=== PATIENT | female | born 1950 | race Caucasian/White ===

== ENCOUNTER 2017-04-30 11:36 | Inpatient (IN) | payer OTHER ==
[2017-04-30] MEDS ORDERED: MOTRIN TAB 600 MG PO PRN (16:07)
[2017-04-30] MEDS ORDERED: CLEOCIN VIAL 600 MG 300 MG in D5W 50 ML IV 50 ML IV SCH (16:07)
[2017-04-30 16:20] VITALS: BMI 31.6
[2017-04-30 17:32] LABS: BASOPHILS % (AUTO) 0.9 % (0.2-1.0); EOSINOPHILS # (AUTO) 0.2 x10^3/uL (0.0-0.2); EOSINOPHILS % (AUTO) 3.7 % (0.9-2.9); HEMATOCRIT 28.1 % (36.0-47.0); HEMOGLOBIN 9.1 g/dL (12.0-16.0); LYMPHOCYTES # (AUTO) 0.5 X10^3/uL (1.3-2.9); LYMPHOCYTES % (AUTO) 9.5 % (21.0-51.0); MEAN CORPUSCULAR HGB CONC 32.5 g/dL (33.0-35.0); MEAN CORPUSCULAR VOLUME 89.3 fL (80.0-100.0); MEAN PLATELET VOLUME 7.1 fL (7.4-11.0); MONOCYTES # (AUTO) 0.3 x10^3/uL (0.3-0.8); MONOCYTES % (AUTO) 5.5 % (0.0-13.0); NEUTROPHILS # (AUTO) 4.2 x10^3/uL (2.2-4.8); NEUTROPHILS % (AUTO) 80.4 % (42.0-75.0); PLATELET COUNT 154 X10^3/uL (150.0-450.0); RED BLOOD COUNT 3.15 X10^6/uL (3.5-5.4); RED CELL DISTRIBUTION WIDTH 17.4 % (11.6-16.5); WHITE BLOOD COUNT 5.2 X10^3/uL (3.6-10.0)
[2017-04-30 17:45] LABS: ALBUMIN 3.1 g/dL (3.4-5.0); CALCIUM 8.7 mg/dL (8.5-10.1); CARBON DIOXIDE 26.4 mmol/L (21-32); COR CA(FOR HYPOALB) 9.4 mg/dL (8.5-10.1); CREATININE 2.03 mg/dL (0.55-1.02); TOTAL PROTEIN 6.8 g/dL (6.4-8.2)
[2017-04-30] MEDS: NORCO 5/325 MG TAB PO PRN (22:17)
[2017-04-30] MEDS: KLONOPIN TAB 0.5 MG PO PRN (22:18)
[2017-04-30] MEDS: GENTAMICIN TOPICAL OINT TOP SCH (22:19)
[2017-04-30] MEDS: CLEOCIN 600 MG IV PREMIX 600 MG/50 ML BAG IV SCH (22:19)
[2017-04-30] MEDS: NS 500 ML IV 500 ML IV PRN (22:19)
[2017-04-30] MEDS: NYSTATIN POWDER TOP SCH (22:37)
[2017-05-01] MEDS: NORCO 5/325 MG TAB PO PRN ×3 (04:49→21:29)
[2017-05-01] MEDS: CLEOCIN 600 MG IV PREMIX 600 MG/50 ML BAG IV SCH ×3 (05:03→21:18)
[2017-05-01 06:05] LABS: ALBUMIN 2.9 g/dL (3.4-5.0); CALCIUM 8.3 mg/dL (8.5-10.1); CARBON DIOXIDE 25.5 mmol/L (21-32); COR CA(FOR HYPOALB) 9.2 mg/dL (8.5-10.1); CREATININE 1.84 mg/dL (0.55-1.02); MAGNESIUM 2.3 mg/dL (1.7-2.9); TOTAL PROTEIN 6.5 g/dL (6.4-8.2)
[2017-05-01 06:15] LABS: BASOPHILS # (AUTO) 0.1 X10^3/uL (0.0-0.1); BASOPHILS % (AUTO) 1.3 % (0.2-1.0); EOSINOPHILS # (AUTO) 0.2 x10^3/uL (0.0-0.2); EOSINOPHILS % (AUTO) 3.8 % (0.9-2.9); HEMOGLOBIN 8.8 g/dL (12.0-16.0); LYMPHOCYTES # (AUTO) 0.7 X10^3/uL (1.3-2.9); LYMPHOCYTES % (AUTO) 15.6 % (21.0-51.0); MEAN CORPUSCULAR HEMOGLOBIN 29.3 pg (27.0-34.0); MEAN CORPUSCULAR HGB CONC 32.7 g/dL (33.0-35.0); MEAN CORPUSCULAR VOLUME 89.6 fL (80.0-100.0); MEAN PLATELET VOLUME 7.4 fL (7.4-11.0); MONOCYTES # (AUTO) 0.3 x10^3/uL (0.3-0.8); MONOCYTES % (AUTO) 6.1 % (0.0-13.0); NEUTROPHILS # (AUTO) 3.3 x10^3/uL (2.2-4.8); NEUTROPHILS % (AUTO) 73.2 % (42.0-75.0); PLATELET COUNT 143 X10^3/uL (150.0-450.0); RED BLOOD COUNT 3.02 X10^6/uL (3.5-5.4); RED CELL DISTRIBUTION WIDTH 17.7 % (11.6-16.5); WHITE BLOOD COUNT 4.6 X10^3/uL (3.6-10.0)
[2017-05-01] MEDS: GENTAMICIN TOPICAL OINT TOP SCH ×2 (10:00→21:18)
[2017-05-01] MEDS: NYSTATIN POWDER TOP SCH ×2 (10:00→21:18)
[2017-05-01] MEDS ORDERED: KLONOPIN TAB 0.5 MG PO PRN (11:34)
[2017-05-01] MEDS ORDERED: ULTRAM PO PRN (11:34)
[2017-05-01] MEDS ORDERED: VISTARIL PO PRN (11:34)
[2017-05-01] MEDS ORDERED: TYLENOL 325 MG TAB PO PRN (11:34)
[2017-05-01] MEDS ORDERED: LACTULOSE PO PRN (11:34)
[2017-05-01] MEDS ORDERED: HumuLIN R SUBCUT PRN (11:39)
[2017-05-01] MEDS ORDERED: PATIENT'S HOME MEDICATION (Ferrous Sulfate [Ferrous Sulfate] 325 MG) PO SCH (11:45)
[2017-05-01] MEDS ORDERED: CITALOPRAM HYDROBROMIDE 10 MG PO SCH (11:45)
[2017-05-01] MEDS ORDERED: LACTOBACILLUS ACIDOPHILUS PO SCH (11:45)
[2017-05-01] MEDS ORDERED: NYSTATIN POWDER TOP SCH (12:00)
--- NOTE | 2017-05-01 12:54 | DR.H&P ---
H&P - History & Physical for Day of: H&P Date: 04/30/17 - Chief Complaint Chief Complaint: right breast pain, right breast rash - Allergies Allergies/Adverse Reactions: Allergies Allergy/AdvReac Type Severity Reaction Status Date / Time Sulfa (Sulfonamide Allergy Verified 04/30/17 16:07 Antibiotics) [SULFA] sulfamethoxazole Allergy Verified 04/30/17 16:07 [From Bactrim] trimethoprim [From Bactrim] Allergy Verified 04/30/17 16:07 - History of Present Illness History of Present Illness: patient is a 66-year-old white female who was a direct admit for treatment of a right breast cellulitis/abscess and right upper abdominal cellulitis. Patient had been treated with by mouth antibiotics prior to admission. Patient does have a past medical history of diabetes hypertension and arthritis and breast cancer. Plan to obtain blood cultures and wound culture, administer IV antibiotics and pain control and resume home medications. - Past Medical History Past Medical History: Arthritis, Diabetes, GERD, Hypertension Additional Medical History: breast cancer - Past Surgical History Surgical History: Cholecystectomy - Social History Does patient currently use any type of tobacco product: No Have you used tobacco products in the last 12 months: No Type of Tobacco Use: None Does any household member use tobacco: No Alcohol Use: None Drug Use: None - Medications Home Medications: Acetaminophen [Tylenol 325 mg Tab] 650 mg PO Q6H PRN 04/30/17 [History Confirmed 04/30/17] Amiodarone HCl [CORDARONE tab 200 mg *] 1 tab PO DAILY 04/30/17 [History Confirmed 04/30/17] Amlodipine Besylate [NORVASC 10 MG *] 10 mg PO DAILY 04/30/17 [History Confirmed 04/30/17] Aspirin [Adult Low Dose Aspirin EC] 81 mg PO DAILY 04/30/17 [History Confirmed 04/30/17] Cephalexin [KEFLEX CAP 500 MG *] 500 mg PO BID 04/30/17 [History Confirmed 04/30] Citalopram Hydrobromide [Celexa] 10 mg PO DAILY 04/30/17 [History Confirmed ] Clonazepam [Klonopin Tab 0.5 mg] 0.5 mg PO Q12H PRN 04/30/17 [History Confirmed 04/30/17] Docusate Sodium [Colace] 100 mg PO BID 10/24/17 [History Confirmed 04/30/17] Doxycycline Monohydrate [Mondoxyne Nl] 100 mg PO BID 04/30/17 [History Confirmed 04/30/17] Ferrous Sulfate 325 mg PO BID 04/30/17 [History Confirmed 04/30/17] Gabapentin [Neurontin Cap 100 mg] 200 mg PO BID 04/30/17 [History Confirmed ] Hydroxyzine Pamoate 25 mg PO Q6H PRN 04/30/17 [History Confirmed 04/30/17] Insulin Glargine (Lantus) [LANTUS INSULIN 10 ML VIAL *] 10 units SC HS 04/30/17 [History Confirmed 04/30/17] Lactobacillus Acidophilus [Probiotic Acidophilus] 2 each PO BID 04/30/17 [ History Confirmed 04/30/17] Lactulose 30 ml PO Q4H PRN 04/30/17 [History Confirmed 04/30/17] Levothyroxine Sodium [SYNTHROID 75 mcg *] 1 tab PO QAM 04/30/17 [History Confirmed 04/30/17] Losartan Potassium [LOSARTAN POTASSIUM 50 MG *] 50 mg PO DAILY 04/30/17 [ History Confirmed 04/30/17] Nystatin (Topical) [NYSTATIN POWDER *] 1 applic TOP BID 04/30/17 [History Confirmed 04/30/17] Ropinirole HCl [REQUIP 1 MG *] 1 mg PO HS 04/30/17 [History Confirmed 04/30/17] Tramadol HCl [ULTRAM 50 MG *] 50 mg PO Q8H PRN 04/30/17 [History Confirmed 04/30] - Review of Systems Constitutional: No Symptoms Reported Eyes: No Symptoms Reported ENT: No Symptoms Reported Respiratory: No Symptoms Reported Cardiovascular: No Symptoms Reported Gastrointestinal: No Symptoms Reported Genitourinary: No Symptoms Reported Musculoskeletal: Back Pain, Leg Pain Skin: Rash Neurological: No Symptoms Reported - Physical Exam Vital Signs: Temperature 97.8 F Pulse Rate [Left Brachial] 83 Respiratory Rate 18 Blood Pressure [Left Arm] 162/77 Blood Pressure 175/83 O2 Sat by Pulse Oximetry 97 Oriented: Normal Eyes: Normal Ear: Normal Nose: Normal Throat: Normal Respiratory: RLL Diminished, LLL Diminished Cardiovascular: Normal : Normal Auscultation: Bowel Sounds: Normal Palpation: Normal Tenderness: Normal Skin: Decreased Turgur, Rash, Other (right breast enlarged with palpable mass under nipple, approx 5cm width, tender, pitted skin to tissue surround nipple, mild nipple retraction, severe redness and excoriation under right breast, skin folds) Musculoskeletal: Back:Thoracic, Back:Lumbar Psychiatric: Anxiety Affect: Anxious Speech Pattern: Clear, Appropriate - Assessment/Plan (1) Cellulitis of right breast Status: Acute Plan: admit, blood and wound cultures, treatment of topical erythema with nystatin powder, IV antibiotic therapy, admission labs, resume home medications (2) Mass of breast, right Status: Acute (3) Cellulitis, abdominal wall Status: Acute (4) Keila infection Status: Acute (5) Diabetes Status: Acute (6) Hypertension Status: Acute
[2017-05-01] MEDS ORDERED: CHRONULAC PO PRN (13:01)
[2017-05-01] MEDS: NORVASC TAB 10 MG PO SCH (14:13)
[2017-05-01] MEDS: ASPIRIN EC 81 MG PO SCH (14:13)
[2017-05-01] MEDS: COZAAR PO SCH (14:14)
[2017-05-01] MEDS: NEURONTIN CAP 100 MG PO SCH ×2 (14:14→21:18)
[2017-05-01] MEDS: CORDARONE TAB 200 MG PO SCH (14:14)
[2017-05-01] MEDS: ZOFRAN INJ 4 MG VIAL IVP PRN (16:39)
--- NOTE | 2017-05-01 16:58 | US ---
HISTORY: Right breast pain with cellulitis and possible abscess; prior history of breast carcinoma Study: Right breast ultrasound Comparison: None Technique: Multiple grayscale and color Doppler images of the right breast were obtained. Findings: Targeted sonographic evaluation of the region of interest along the lower outer quadrant right breast demonstrates diffuse edema which could be secondary to cellulitis without a focal discrete fluid col lection to suggest abscess. Findings could also be seen in the setting of asymmetric venous or lympha tic obstruction as well as in the setting of an overall volume overload status. Clinical correlation and follow-up is recommended. Correlation with bilateral mammography is recommended on a routine outp atient nonemergent basis. IMPRESSION: Diffuse right breast edema as above. Reported By:
[2017-05-01] MEDS ORDERED: LANTUS SC SCH (21:00)
[2017-05-01] MEDS: HEMOCYTE-PLUS PO SCH (21:17)
[2017-05-01] MEDS: COLACE CAP 100 MG PO SCH (21:17)
[2017-05-01] MEDS: REQUIP PO SCH (21:17)
[2017-05-01] MEDS: KLONOPIN TAB 0.5 MG PO PRN (21:30)
[2017-05-01] MEDS: SNACK - Diabetic Appropriate PO SCH (21:39)
[2017-05-01] MEDS: PHENERGAN TAB 25 MG PO PRN (22:08)
[2017-05-02] MEDS: CLEOCIN 600 MG IV PREMIX 600 MG/50 ML BAG IV SCH ×3 (06:12→21:01)
[2017-05-02 06:45] LABS: BASOPHILS # (AUTO) 0.1 X10^3/uL (0.0-0.1); BASOPHILS % (AUTO) 0.5 % (0.2-1.0); EOSINOPHILS % (AUTO) 0.2 % (0.9-2.9); HEMATOCRIT 27.6 % (36.0-47.0); HEMOGLOBIN 8.9 g/dL (12.0-16.0); LYMPHOCYTES # (AUTO) 0.4 X10^3/uL (1.3-2.9); LYMPHOCYTES % (AUTO) 4.3 % (21.0-51.0); MEAN CORPUSCULAR HEMOGLOBIN 29.1 pg (27.0-34.0); MEAN CORPUSCULAR HGB CONC 32.2 g/dL (33.0-35.0); MEAN CORPUSCULAR VOLUME 90.3 fL (80.0-100.0); MEAN PLATELET VOLUME 7.7 fL (7.4-11.0); MONOCYTES # (AUTO) 0.6 x10^3/uL (0.3-0.8); MONOCYTES % (AUTO) 6.2 % (0.0-13.0); NEUTROPHILS # (AUTO) 8.6 x10^3/uL (2.2-4.8); NEUTROPHILS % (AUTO) 88.8 % (42.0-75.0); PLATELET COUNT 134 X10^3/uL (150.0-450.0); RED BLOOD COUNT 3.06 X10^6/uL (3.5-5.4); RED CELL DISTRIBUTION WIDTH 17.4 % (11.6-16.5); WHITE BLOOD COUNT 9.7 X10^3/uL (3.6-10.0)
[2017-05-02 06:58] LABS: ALBUMIN 3.1 g/dL (3.4-5.0); CALCIUM 8.4 mg/dL (8.5-10.1); CARBON DIOXIDE 26.8 mmol/L (21-32); COR CA(FOR HYPOALB) 9.1 mg/dL (8.5-10.1); CREATININE 1.96 mg/dL (0.55-1.02); TOTAL PROTEIN 6.8 g/dL (6.4-8.2)
[2017-05-02] MEDS ORDERED: KAYEXALATE PO ONE (08:32)
[2017-05-02] MEDS: CORDARONE TAB 200 MG PO SCH ×2 (09:44→11:47)
[2017-05-02] MEDS: NORVASC TAB 10 MG PO SCH ×2 (09:44→11:48)
[2017-05-02] MEDS: CELEXA PO SCH ×2 (09:45→11:46)
[2017-05-02] MEDS: NEURONTIN CAP 100 MG PO SCH ×3 (09:46→21:06)
[2017-05-02] MEDS: SYNTHROID 75 mcg TAB PO SCH ×2 (09:46→11:46)
[2017-05-02] MEDS: COZAAR PO SCH ×2 (09:47→11:47)
[2017-05-02] MEDS: ASPIRIN EC 81 MG PO SCH ×2 (09:47→11:45)
[2017-05-02] MEDS: HEMOCYTE-PLUS PO SCH ×3 (09:47→21:06)
[2017-05-02] MEDS: COLACE CAP 100 MG PO SCH ×3 (09:47→21:05)
[2017-05-02] MEDS: VSL#3 PO SCH ×2 (09:47→11:45)
[2017-05-02] MEDS ORDERED: LASIX IVP ONE ×2 (10:00→11:38)
--- NOTE | 2017-05-02 10:33 | RAD ---
HISTORY: Aspiration. Prior history of hypertension and atrial fibrillation. Study: Single-view chest, done portably. Comparison: No priors Findings: Left-sided subclavian line is present with the tip in the upper SVC. The trachea is midline. There is cardiomegaly with aortic uncoiling and pulmonary vascular congestion bilaterally. Foci of edema, inf iltrate or aspiration are present bilaterally. There are bilateral pleural effusions, larger on the r ight side. 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 No acute osseou s changes seen. IMPRESSION: Cardiomegaly with pulmonary vascular congestion and bilateral foci of edema, infiltrate or aspiration . Bilateral pleural effusions are present, larger on the right side. Reported By:
[2017-05-02 10:42] LABS: BILIRUBIN,URINE NEGATIVE (NEGATIVE); BLOOD/HEMOGLOBIN,URINE 2+ (NEGATIVE); GLUCOSE, URINE NEGATIVE (NEGATIVE); KETONES,URINE NEGATIVE (NEGATIVE); LEUKOCYTE ESTERASE ,URINE 1+ (NEGATIVE); NITRITES,URINE POSITIVE (NEGATIVE); PROTEIN,URINE 3+ (NEGATIVE); UROBILINOGEN,URINE NORMAL (NORMAL)
[2017-05-02 10:52] LABS: AMORPHOUS SEDIMENT,UR 1+ /HPF (NEGATIVE); APPEARANCE,URINE SLIGHTLY HAZY (CLEAR); BACTERIA,URINE TRACE /HPF (NEGATIVE); COLOR,URINE YELLOW (YELLOW); SQUAMOUS EPITHELIAL CELL,UR RARE /HPF (NEGATIVE)
[2017-05-02] MEDS: PEPCID 20 MG IV PREMIX* 20 MG/50 ML BAG IV SCH (11:10)
[2017-05-02] MEDS: NYSTATIN POWDER TOP SCH ×2 (11:48→21:06)
[2017-05-02] MEDS: GENTAMICIN TOPICAL OINT TOP SCH ×2 (11:48→21:05)
[2017-05-02] MEDS: DUONEB 0.5 MG/3 MG NEB PRN ×2 (12:05→16:37)
[2017-05-02] MEDS: LASIX IVP SCH (21:01)
[2017-05-02] MEDS: SNACK - Diabetic Appropriate PO SCH (21:05)
[2017-05-02] MEDS: REQUIP PO SCH (21:07)
[2017-05-03] MEDS: DUONEB 0.5 MG/3 MG NEB PRN ×2 (00:45→16:12)
[2017-05-03] MEDS: ZOFRAN INJ 4 MG VIAL IVP PRN (04:26)
[2017-05-03] MEDS: CLEOCIN 600 MG IV PREMIX 600 MG/50 ML BAG IV SCH (05:26)
[2017-05-03 07:19] LABS: BASOPHILS % (AUTO) 0.4 % (0.2-1.0); EOSINOPHILS % (AUTO) 0.3 % (0.9-2.9); HEMATOCRIT 26.3 % (36.0-47.0); HEMOGLOBIN 8.6 g/dL (12.0-16.0); LYMPHOCYTES # (AUTO) 0.4 X10^3/uL (1.3-2.9); LYMPHOCYTES % (AUTO) 5.7 % (21.0-51.0); MEAN CORPUSCULAR HEMOGLOBIN 29.5 pg (27.0-34.0); MEAN CORPUSCULAR HGB CONC 32.6 g/dL (33.0-35.0); MEAN CORPUSCULAR VOLUME 90.5 fL (80.0-100.0); MONOCYTES # (AUTO) 0.4 x10^3/uL (0.3-0.8); NEUTROPHILS # (AUTO) 6.2 x10^3/uL (2.2-4.8); NEUTROPHILS % (AUTO) 88.6 % (42.0-75.0); PLATELET COUNT 132 X10^3/uL (150.0-450.0); RED BLOOD COUNT 2.91 X10^6/uL (3.5-5.4); RED CELL DISTRIBUTION WIDTH 17.1 % (11.6-16.5)
[2017-05-03 07:33] LABS: ALBUMIN 2.9 g/dL (3.4-5.0); CALCIUM 8.7 mg/dL (8.5-10.1); CARBON DIOXIDE 24.5 mmol/L (21-32); COR CA(FOR HYPOALB) 9.6 mg/dL (8.5-10.1); CREATININE 1.88 mg/dL (0.55-1.02); TOTAL PROTEIN 6.7 g/dL (6.4-8.2)
[2017-05-03] MEDS: CELEXA PO SCH (08:11)
[2017-05-03] MEDS: ASPIRIN EC 81 MG PO SCH (08:11)
[2017-05-03] MEDS: COZAAR PO SCH (08:12)
[2017-05-03] MEDS: COLACE CAP 100 MG PO SCH ×2 (08:12→21:27)
[2017-05-03] MEDS: HEMOCYTE-PLUS PO SCH ×2 (08:12→21:27)
[2017-05-03] MEDS: NEURONTIN CAP 100 MG PO SCH ×2 (08:12→21:27)
[2017-05-03] MEDS: CORDARONE TAB 200 MG PO SCH (08:12)
[2017-05-03] MEDS: NORVASC TAB 10 MG PO SCH (08:13)
[2017-05-03] MEDS: SYNTHROID 75 mcg TAB PO SCH (08:13)
[2017-05-03] MEDS: VSL#3 PO SCH (08:14)
[2017-05-03] MEDS: MORPHINE SULFATE INJ 2 MG INJ IVP PRN ×2 (08:33→15:27)
[2017-05-03] MEDS: LASIX IVP SCH ×2 (08:33→21:25)
[2017-05-03] MEDS: PEPCID 20 MG IV PREMIX* 20 MG/50 ML BAG IV SCH (08:33)
[2017-05-03] MEDS ORDERED: CONSULT PHARMACY - ANTIBIOTIC XX SCH (09:00)
[2017-05-03] MEDS: GENTAMICIN TOPICAL OINT TOP SCH ×2 (09:57→21:27)
[2017-05-03] MEDS: NYSTATIN POWDER TOP SCH ×2 (09:57→21:27)
[2017-05-03] MEDS: ROCEPHIN 1 GM IV PREMIX 1 GM/50 ML IV.SOLN. IV SCH (13:22)
[2017-05-03] MEDS: SNACK - Diabetic Appropriate PO SCH (21:27)
[2017-05-03] MEDS: REQUIP PO SCH (21:28)
--- NOTE | 2017-05-04 08:34 | RAD ---
HISTORY: CHF, possible aspiration. Study: Single-view chest, done portably Comparison: 05/02/2017. Findings: Left-sided subclavian line is seen with the tip in the upper SVC. The trachea is midline. There is gl obular cardiomegaly with aortic uncoiling and pulmonary vascular congestion. There are again bilatera l foci of edema, infiltrate or aspiration. Bibasilar densities appear to be increasing compared to pr ior studies. There are bilateral pleural effusions. Osteonecrosis is again seen involving the right h umeral head with chronic dislocation. No acute osseous changes are appreciated. IMPRESSION: Further increase in bilateral lung densities representing either edema, infiltrate or aspiration. Leo ateral pleural effusions are again noted. Reported By:
[2017-05-04] MEDS: CORDARONE TAB 200 MG PO SCH (09:24)
[2017-05-04] MEDS: VSL#3 PO SCH (09:24)
[2017-05-04] MEDS: NEURONTIN CAP 100 MG PO SCH ×2 (09:24→21:45)
[2017-05-04] MEDS: NORVASC TAB 10 MG PO SCH (09:24)
[2017-05-04] MEDS: COLACE CAP 100 MG PO SCH ×2 (09:24→21:44)
[2017-05-04] MEDS: ASPIRIN EC 81 MG PO SCH (09:24)
[2017-05-04] MEDS: CELEXA PO SCH (09:24)
[2017-05-04] MEDS: HEMOCYTE-PLUS PO SCH ×2 (09:25→21:44)
[2017-05-04] MEDS: COZAAR PO SCH (09:25)
[2017-05-04] MEDS: PEPCID 20 MG IV PREMIX* 20 MG/50 ML BAG IV SCH (09:45)
[2017-05-04] MEDS: SYNTHROID 75 mcg TAB PO SCH (09:48)
[2017-05-04] MEDS: LASIX IVP SCH ×2 (09:48→21:44)
[2017-05-04] MEDS: NYSTATIN POWDER TOP SCH ×2 (09:49→22:46)
[2017-05-04] MEDS: GENTAMICIN TOPICAL OINT TOP SCH ×2 (09:49→22:46)
[2017-05-04] MEDS: ROCEPHIN 1 GM IV PREMIX 1 GM/50 ML IV.SOLN. IV SCH (10:22)
[2017-05-04] MEDS: NS 500 ML IV 500 ML IV PRN (18:15)
[2017-05-04] MEDS ORDERED: NS 50 ML IV 50 ML IV ONE (20:52)
[2017-05-04] MEDS ORDERED: TEFLARO IV ONE (20:53)
[2017-05-04] MEDS: NORCO 5/325 MG TAB PO PRN (21:44)
[2017-05-04] MEDS: REQUIP PO SCH (21:44)
[2017-05-04] MEDS: SNACK - Diabetic Appropriate PO SCH (21:46)
[2017-05-04] MEDS: KLONOPIN TAB 0.5 MG PO PRN (21:46)
[2017-05-04] MEDS: TEFLARO 600 MG in NS 50 ML IV + SPIKE MINIBAG* 50 ML IV SCH (21:46)
[2017-05-05] MEDS: MORPHINE SULFATE INJ 2 MG INJ IVP PRN (00:27)
[2017-05-05] MEDS: PHENERGAN TAB 25 MG PO PRN (00:28)
[2017-05-05 05:22] LABS: ALANINE AMINOTRANSFERASE 13 Units/L (12-78); ALBUMIN 2.9 g/dL (3.4-5.0); ALKALINE PHOSPHATASE 96 Units/L (46-116); ASPARTATE AMINO TRANSFERASE 16 Units/L (15-37); BLOOD UREA NITROGEN 46 mg/dL (7-18); CALCIUM 8.9 mg/dL (8.5-10.1); CARBON DIOXIDE 25.6 mmol/L (21-32); CHLORIDE 112 mmol/L (98-107); COR CA(FOR HYPOALB) 9.8 mg/dL (8.5-10.1); CREATININE 1.86 mg/dL (0.55-1.02); SODIUM 148 mmol/L (136-145); TOTAL PROTEIN 6.7 g/dL (6.4-8.2); eGFR BLACK RACES 35 (>60); eGFR NON BLACK RACES 29 (>60)
[2017-05-05 05:27] LABS: BASOPHILS % (AUTO) 0.7 % (0.2-1.0); EOSINOPHILS % (AUTO) 0.8 % (0.9-2.9); HEMATOCRIT 30.2 % (36.0-47.0); HEMOGLOBIN 9.7 g/dL (12.0-16.0); LYMPHOCYTES # (AUTO) 0.4 X10^3/uL (1.3-2.9); MEAN CORPUSCULAR HGB CONC 32.3 g/dL (33.0-35.0); MEAN CORPUSCULAR VOLUME 89.9 fL (80.0-100.0); MEAN PLATELET VOLUME 7.7 fL (7.4-11.0); MONOCYTES # (AUTO) 0.2 x10^3/uL (0.3-0.8); MONOCYTES % (AUTO) 3.6 % (0.0-13.0); NEUTROPHILS # (AUTO) 5.4 x10^3/uL (2.2-4.8); NEUTROPHILS % (AUTO) 88.9 % (42.0-75.0); PLATELET COUNT 175 X10^3/uL (150.0-450.0); RED BLOOD COUNT 3.36 X10^6/uL (3.5-5.4); RED CELL DISTRIBUTION WIDTH 16.4 % (11.6-16.5)
[2017-05-05] MEDS ORDERED: TEFLARO IV ONE (09:22)
[2017-05-05] MEDS ORDERED: NS 50 ML IV 50 ML IV ONE (09:23)
[2017-05-05] MEDS: TEFLARO 600 MG in NS 50 ML IV 50 ML IV SCH (09:37)
[2017-05-05] MEDS: VSL#3 PO SCH (09:38)
[2017-05-05] MEDS: CELEXA PO SCH (09:38)
[2017-05-05] MEDS: HEMOCYTE-PLUS PO SCH (09:39)
[2017-05-05] MEDS: SYNTHROID 75 mcg TAB PO SCH (09:40)
[2017-05-05] MEDS: NEURONTIN CAP 100 MG PO SCH (09:40)
[2017-05-05] MEDS: COLACE CAP 100 MG PO SCH (09:40)
[2017-05-05] MEDS: CORDARONE TAB 200 MG PO SCH (09:40)
[2017-05-05] MEDS: NORVASC TAB 10 MG PO SCH (09:40)
[2017-05-05] MEDS: COZAAR PO SCH (09:40)
[2017-05-05] MEDS: ASPIRIN EC 81 MG PO SCH (09:40)
[2017-05-05] MEDS: GENTAMICIN TOPICAL OINT TOP SCH (09:47)
[2017-05-05] MEDS: NYSTATIN POWDER TOP SCH (09:47)
[2017-05-05] MEDS: LASIX IVP SCH (09:50)
[2017-05-05] MEDS: ROCEPHIN 1 GM IV PREMIX 1 GM/50 ML IV.SOLN. IV SCH (10:27)
[2017-05-05] MEDS: PEPCID 20 MG IV PREMIX* 20 MG/50 ML BAG IV SCH (11:00)
[2017-05-06] MEDS: NS 500 ML IV 500 ML IV PRN ×3 (00:47→23:16)
[2017-05-06] MEDS: TEFLARO 600 MG in NS 50 ML IV 50 ML IV SCH ×3 (01:00→21:52)
[2017-05-06] MEDS: LASIX IVP SCH ×3 (01:01→21:49)
[2017-05-06] MEDS: COLACE CAP 100 MG PO SCH ×4 (01:02→21:54)
[2017-05-06] MEDS: SNACK - Diabetic Appropriate PO SCH ×2 (01:02→21:48)
[2017-05-06] MEDS: NEURONTIN CAP 100 MG PO SCH ×3 (01:03→21:51)
[2017-05-06] MEDS: HEMOCYTE-PLUS PO SCH ×3 (01:03→21:50)
[2017-05-06] MEDS: REQUIP PO SCH ×2 (01:04→21:51)
[2017-05-06] MEDS: NYSTATIN POWDER TOP SCH ×3 (01:06→21:30)
[2017-05-06] MEDS: GENTAMICIN TOPICAL OINT TOP SCH ×3 (01:13→21:50)
--- NOTE | 2017-05-06 06:50 | RAD ---
HISTORY: Follow-up congestive heart failure Study: Chest AP portable Comparison: 05/04/2017 Findings: There is a left-sided central line with its tip in the superior vena cava. The heart is enlarged. Mil d pulmonary venous congestion is present. Increased density is present in both lower lobes consisten t with developing atelectasis or infiltrate. The appearance is unchanged from the prior examination. Bilateral pleural effusions are again identified. The bony thorax is unremarkable with the exception of deformity of the right humeral head likely due to osteonecrosis and chronic right glenohumeral dis location. IMPRESSION: No significant change from the prior examination Reported By:
[2017-05-06 07:37] LABS: BASOPHILS # (AUTO) 0.1 X10^3/uL (0.0-0.1); EOSINOPHILS # (AUTO) 0.2 x10^3/uL (0.0-0.2); HEMATOCRIT 27.2 % (36.0-47.0); HEMOGLOBIN 8.9 g/dL (12.0-16.0); LYMPHOCYTES # (AUTO) 0.5 X10^3/uL (1.3-2.9); LYMPHOCYTES % (AUTO) 8.7 % (21.0-51.0); MEAN CORPUSCULAR HEMOGLOBIN 29.1 pg (27.0-34.0); MEAN CORPUSCULAR HGB CONC 32.9 g/dL (33.0-35.0); MEAN CORPUSCULAR VOLUME 88.4 fL (80.0-100.0); MEAN PLATELET VOLUME 7.1 fL (7.4-11.0); MONOCYTES # (AUTO) 0.2 x10^3/uL (0.3-0.8); NEUTROPHILS # (AUTO) 5.1 x10^3/uL (2.2-4.8); NEUTROPHILS % (AUTO) 83.3 % (42.0-75.0); PLATELET COUNT 162 X10^3/uL (150.0-450.0); RED BLOOD COUNT 3.08 X10^6/uL (3.5-5.4); WHITE BLOOD COUNT 6.1 X10^3/uL (3.6-10.0)
[2017-05-06 07:47] LABS: ALANINE AMINOTRANSFERASE 12 Units/L (12-78); ALBUMIN 2.6 g/dL (3.4-5.0); ALKALINE PHOSPHATASE 84 Units/L (46-116); ASPARTATE AMINO TRANSFERASE 12 Units/L (15-37); BLOOD UREA NITROGEN 39 mg/dL (7-18); CALCIUM 8.4 mg/dL (8.5-10.1); CARBON DIOXIDE 28.3 mmol/L (21-32); CHLORIDE 111 mmol/L (98-107); COR CA(FOR HYPOALB) 9.5 mg/dL (8.5-10.1); CREATININE 1.64 mg/dL (0.55-1.02); SODIUM 149 mmol/L (136-145); TOTAL PROTEIN 5.9 g/dL (6.4-8.2); eGFR BLACK RACES 40 (>60); eGFR NON BLACK RACES 33 (>60)
[2017-05-06] MEDS: CORDARONE TAB 200 MG PO SCH (08:43)
[2017-05-06] MEDS: COZAAR PO SCH (08:43)
[2017-05-06] MEDS: ASPIRIN EC 81 MG PO SCH (08:43)
[2017-05-06] MEDS: NORVASC TAB 10 MG PO SCH (08:43)
[2017-05-06] MEDS: CELEXA PO SCH (08:43)
[2017-05-06] MEDS: SYNTHROID 75 mcg TAB PO SCH (08:44)
[2017-05-06] MEDS: VSL#3 PO SCH (08:44)
[2017-05-06] MEDS: PEPCID 20 MG IV PREMIX* 20 MG/50 ML BAG IV SCH (09:09)
[2017-05-06] MEDS: ROCEPHIN 1 GM IV PREMIX 1 GM/50 ML IV.SOLN. IV SCH (09:10)
[2017-05-06] MEDS ORDERED: LR 1000 ML IV 1,000 ML IV ONE (10:15)
[2017-05-06] MEDS: TEFLARO 600 MG in NS 50 ML IV + SPIKE MINIBAG* 50 ML IV SCH (10:16)
--- NOTE | 2017-05-06 10:41 | DR.CONSULT ---
Consult - Consultation for Day of: Date: 05/06/17 - Chief Complaint Chief Complaint: Right breast edema. - Allergies Allergies/Adverse Reactions: Allergies Allergy/AdvReac Type Severity Reaction Status Date / Time Sulfa (Sulfonamide Allergy Verified 04/30/17 16:07 Antibiotics) [SULFA] sulfamethoxazole Allergy Verified 04/30/17 16:07 [From Bactrim] trimethoprim [From Bactrim] Allergy Verified 04/30/17 16:07 - History of Present Illness History of Present Illness: The patient is a 66 yo female with multiple medical problems that presents with right breast rash and edema. The patient was treated as an outpatient with antibiotics without improvement. She was admitted to the hospital and placed in IV antibiotics. An ultrasound was performed that demonstrated edema without a drainable fluid collection. On further exam, the patient also has an infected sebaceous cyst on the lateral aspect of the right posterior thorax. The nurses report green purulent drainage. Surgery was consulted for incision and drainage. - Past Medical History Past Medical History: Arthritis, Diabetes, GERD, Hypertension Additional Medical History: breast cancer - Past Surgical History Surgical History: Cholecystectomy, Mastectomy (Left) - Social History Does patient currently use any type of tobacco product: No Have you used tobacco products in the last 12 months: No Type of Tobacco Use: None Does any household member use tobacco: No Alcohol Use: None Drug Use: None - Medications Home Medications: Acetaminophen [Tylenol 325 mg Tab] 650 mg PO Q6H PRN 04/30/17 [History Confirmed 04/30/17] Amiodarone HCl [CORDARONE tab 200 mg *] 1 tab PO DAILY 04/30/17 [History Confirmed 04/30/17] Amlodipine Besylate [NORVASC 10 MG *] 10 mg PO DAILY 04/30/17 [History Confirmed 04/30/17] Aspirin [Adult Low Dose Aspirin EC] 81 mg PO DAILY 04/30/17 [History Confirmed 04/30/17] Cephalexin [KEFLEX CAP 500 MG *] 500 mg PO BID 04/30/17 [History Confirmed 04/30] Citalopram Hydrobromide [Celexa] 10 mg PO DAILY 04/30/17 [History Confirmed ] Clonazepam [Klonopin Tab 0.5 mg] 0.5 mg PO Q12H PRN 04/30/17 [History Confirmed 04/30/17] Docusate Sodium [Colace] 100 mg PO BID 04/30/17 [History Confirmed 04/30/17] Doxycycline Monohydrate [Mondoxyne Nl] 100 mg PO BID 04/30/17 [History Confirmed 04/30/17] Ferrous Sulfate 325 mg PO BID 04/30/17 [History Confirmed 04/30/17] Gabapentin [Neurontin Cap 100 mg] 200 mg PO BID 04/30/17 [History Confirmed ] Hydroxyzine Pamoate 25 mg PO Q6H PRN 04/30/17 [History Confirmed 04/30/17] Insulin Glargine (Lantus) [LANTUS INSULIN 10 ML VIAL *] 10 units SC HS 04/30/17 [History Confirmed 04/30/17] Lactobacillus Acidophilus [Probiotic Acidophilus] 2 each PO BID 04/30/17 [ History Confirmed 04/30/17] Lactulose 30 ml PO Q4H PRN 04/30/17 [History Confirmed 04/30/17] Levothyroxine Sodium [SYNTHROID 75 mcg *] 1 tab PO QAM 04/30/17 [History Confirmed 04/30/17] Losartan Potassium [LOSARTAN POTASSIUM 50 MG *] 50 mg PO DAILY 04/30/17 [ History Confirmed 04/30/17] Nystatin (Topical) [NYSTATIN POWDER *] 1 applic TOP BID 04/30/17 [History Confirmed 04/30/17] Ropinirole HCl [REQUIP 1 MG *] 1 mg PO HS 04/30/17 [History Confirmed 04/30/17] Tramadol HCl [ULTRAM 50 MG *] 50 mg PO Q8H PRN 04/30/17 [History Confirmed 04/30] - Review of Systems Constitutional: No Symptoms Reported Eyes: No Symptoms Reported ENT: No Symptoms Reported Respiratory: No Symptoms Reported Cardiovascular: No Symptoms Reported Gastrointestinal: No Symptoms Reported Genitourinary: No Symptoms Reported Musculoskeletal: Back Pain, Leg Pain Skin: Rash, Wound (Right posterior thorax) Neurological: No Symptoms Reported - Physical Exam Vital Signs: Temperature 97.8 F Pulse Rate [Left Brachial] 109 Pulse Rate 113 Respiratory Rate 22 Blood Pressure [Left Arm] 135/76 Blood Pressure 132/74 O2 Sat by Pulse Oximetry 99 Oriented: Normal Eyes: Normal Ear: Normal Nose: Normal Respiratory: Clear Throughout Cardiovascular: Normal Auscultation: Bowel Sounds: Normal Palpation: Normal Tenderness: Normal Skin: Wound (Right lateral posterior thorax. Induration 3.5 cm. Mild drainage. Mildy TTP.), Other (Right breast with edema along right aspect of breast. No erythema. NTTP. No induration. No palpable mass.) Musculoskeletal: Swelling (LE with edema and dicoloration c/w venous stasis disease.) Psychiatric: Depression, Agitation Mood Description: Anxious Affect: Depressed Speech Pattern: Clear - Plan Plan: 66 year old female with right posterior thorax infected sebaceous cyst. Will proceed with incision and drainage. Continue IV abx. Will need outpatient wound care.
[2017-05-06] MEDS ORDERED: XYLOCAINE 2% and EPINEPHRINE 1:100,000 ONE (11:01)
[2017-05-06] MEDS ORDERED: MARCAINE 0.25% INJ ONE (11:02)
[2017-05-06] MEDS ORDERED: NS IRRIGATION 1000 ML 500 ML IR ONE (11:35)
--- NOTE | 2017-05-06 12:47 | OR.GENERIC ---
Post-Op Note Generic - Post-Op Note Operative Report: Operative Report Date of Operation: May 06, 2017 Pre-Operative Diagnosis: Right lateral posterior thorax infected sebaceous cyst. Post-Operative Diagnosis: Right lateral posterior thorax infected sebaceous cyst (3.5 cm diameter). Procedure: Excision of right lateral posterior thorax infected sebaceous cyst. Surgeon: Erasmo Bowman MD. Grants Specialist: Clarissa Albarado CRNA. Anesthesia: Monitored anesthesia care and local. Specimen: None. Estimated blood loss: Minimal. Complications: None. Summary: The patient is a 66 year old female who presented with a right lateral posterior thorax infected sebaceous cyst. The patient was offered excision. The risk and benefits of the procedure including difficulty with anesthesia, bleeding, infection, scar formation, recurrence, and delayed healing were discussed with the patient. The patient understood these risks and requested the procedure. On May 06, 2017, the patient was brought to the operative theatre and placed in a left lateral decubitus position. A time out was performed verifying the patient and the procedure. After satisfactory induction of monitored anesthesia care, the right posterior thorax was prepped with Chloraprep and draped in the usual fashion. A field block was performed using local anesthetic. A fusiform incision was made overlying the cyst and a core of skin removed. The capsule was identified and from the dermis in all directions using electrocautery. The deep margin was dissected free using electrocautery. The capsule was passed off the field. Hemostasis was achieved using electrocautery. The wound was irrigated. The lateral skin edges were closed using simple, interrupted 3-0 Ethilon sutures. The wound bed was packed with 1 Iodoform. A sterile dressing was placed. The patient was awakened and taken to the recovery room in stable condition. There were no complications. All counts were correct.
[2017-05-06] MEDS ORDERED: DIPRIVAN VIAL ONE (15:27)
[2017-05-06] MEDS ORDERED: VERSED ONE (15:27)
[2017-05-06] MEDS: NORCO 5/325 MG TAB PO PRN (21:52)
[2017-05-07] MEDS: KLONOPIN TAB 0.5 MG PO PRN (02:08)
[2017-05-07 06:22] LABS: ALBUMIN 2.5 g/dL (3.4-5.0); CARBON DIOXIDE 30.2 mmol/L (21-32); COR CA(FOR HYPOALB) 9.2 mg/dL (8.5-10.1); CREATININE 1.5 mg/dL (0.55-1.02); TOTAL PROTEIN 5.6 g/dL (6.4-8.2)
[2017-05-07 06:29] LABS: BASOPHILS # (AUTO) 0.1 X10^3/uL (0.0-0.1); BASOPHILS % (AUTO) 0.5 % (0.2-1.0); EOSINOPHILS # (AUTO) 0.3 x10^3/uL (0.0-0.2); EOSINOPHILS % (AUTO) 3.1 % (0.9-2.9); HEMATOCRIT 27.4 % (36.0-47.0); HEMOGLOBIN 9.1 g/dL (12.0-16.0); LYMPHOCYTES # (AUTO) 0.7 X10^3/uL (1.3-2.9); LYMPHOCYTES % (AUTO) 6.2 % (21.0-51.0); MEAN CORPUSCULAR HEMOGLOBIN 29.3 pg (27.0-34.0); MEAN CORPUSCULAR HGB CONC 33.3 g/dL (33.0-35.0); MEAN CORPUSCULAR VOLUME 87.9 fL (80.0-100.0); MEAN PLATELET VOLUME 7.5 fL (7.4-11.0); MONOCYTES # (AUTO) 0.5 x10^3/uL (0.3-0.8); MONOCYTES % (AUTO) 4.4 % (0.0-13.0); NEUTROPHILS # (AUTO) 9.2 x10^3/uL (2.2-4.8); NEUTROPHILS % (AUTO) 85.8 % (42.0-75.0); PLATELET COUNT 159 X10^3/uL (150.0-450.0); RED BLOOD COUNT 3.12 X10^6/uL (3.5-5.4); WHITE BLOOD COUNT 10.7 X10^3/uL (3.6-10.0)
[2017-05-07 07:58] VITALS: BP 115/70
[2017-05-07] MEDS: ASPIRIN EC 81 MG PO SCH (09:13)
[2017-05-07] MEDS: CELEXA PO SCH (09:14)
[2017-05-07] MEDS: COLACE CAP 100 MG PO SCH (09:14)
[2017-05-07] MEDS: COZAAR PO SCH (09:15)
[2017-05-07] MEDS: LASIX IVP SCH (09:15)
[2017-05-07] MEDS: NEURONTIN CAP 100 MG PO SCH (09:15)
[2017-05-07] MEDS: GENTAMICIN TOPICAL OINT TOP SCH (09:15)
[2017-05-07] MEDS: NYSTATIN POWDER TOP SCH (09:15)
[2017-05-07] MEDS: NORVASC TAB 10 MG PO SCH (09:15)
[2017-05-07] MEDS: HEMOCYTE-PLUS PO SCH (09:15)
[2017-05-07] MEDS: CORDARONE TAB 200 MG PO SCH (09:15)
[2017-05-07] MEDS: ROCEPHIN 1 GM IV PREMIX 1 GM/50 ML IV.SOLN. IV SCH (09:16)
[2017-05-07] MEDS: TEFLARO 600 MG in NS 50 ML IV 50 ML IV SCH (09:16)
[2017-05-07] MEDS: VSL#3 PO SCH (09:16)
[2017-05-07] MEDS: PEPCID 20 MG IV PREMIX* 20 MG/50 ML BAG IV SCH (09:16)
[2017-05-07] MEDS: SYNTHROID 75 mcg TAB PO SCH (09:16)
[2017-05-07] MEDS: NORCO 5/325 MG TAB PO PRN (10:42)
== END 2017-05-07 13:30 | DRG 600 ==
LOC: OBS 11:36 → UNDOADMIN 11:36 → OBS 13:23 → MED/SURG 05-01 15:55
PROVIDERS: ADMIT Internal Medicine; ATTEND Internal Medicine
PROC: 0H9T3ZX Drainage of Right Breast, Percutaneous Approach, Diagnostic (ICD-10-PCS; principal; 2017-05-06 12:00)
DX: N61.1 Abscess of the breast and nipple (principal); L03.311 Cellulitis of abdominal wall; N60.81 Other benign mammary dysplasias of right breast; R21 Rash and other nonspecific skin eruption; E11.65 Type 2 diabetes mellitus with hyperglycemia; I10 Essential (primary) hypertension; M13.89 Other specified arthritis, multiple sites; Z85.3 Personal history of malignant neoplasm of breast; K21.9 Gastro-esophageal reflux disease without esophagitis; B37.89 Other sites of candidiasis; I48.91 Unspecified atrial fibrillation; R13.11 Dysphagia, oral phase; R41.82 Altered mental status, unspecified; I50.9 Heart failure, unspecified; F41.8 Other specified anxiety disorders; B96.4 Proteus (mirabilis) (morganii) as the cause of diseases classified elsewhere
CPT/HCPCS: 36415; 71010; 76642; 80053; 81001; 83735; 84132; 85025; 87040; 87070; 87075; 87077; 87086; 87186; 87205; 93005; 94640; 94760; 99231; A4216; A4222; Q0169; Q0177; S0020; S0028; J0077; J0696; J0712; J1940; J2001; J2250; J2270; J2405; J3490; J7120; J7620; S0077